=== PATIENT | male | born 1940 | race Caucasian/White ===

== ENCOUNTER 2022-06-12 10:31 | Emergency (ER) | payer OTHER ==
[2022-06-12 10:39] VITALS: RESP 18; BMI 33.0
[2022-06-12] MEDS ORDERED: LIDOCAINE 5% TOPICAL PATCH TP ONE (11:23)
[2022-06-12] MEDS ORDERED: LIDOCAINE 5% TOPICAL PATCH ONE (11:32)
[2022-06-12] MEDS ORDERED: METHOCARBAMOL 500 MG TABLET PO ONE (13:01)
[2022-06-12] MEDS ORDERED: CYCLOBENZAPRINE HCL 5 MG TABLET PO SCH (13:30)
[2022-06-12] MEDS ORDERED: CYCLOBENZAPRINE HCL 5 MG TABLET ONE (14:00)
[2022-06-12 14:56] VITALS: BP 141/63; PULSE 76; TEMP 98.2
[2022-06-12] MEDS ORDERED: oxyCODONE HCL 5 MG TABLET PO ONE (15:58)
[2022-06-12] MEDS ORDERED: oxyCODONE HCL 5 MG TABLET ONE (15:59)
[2022-06-12 16:19] LABS: BASO % 0.5 % (0-2.0); HEMATOCRIT 34.9 % (35.4-49); HEMOGLOBIN 11.6 GM/dL (11.7-16.9); LYMPH % 11.7 % (8-40); MCH 32.5 pg (25.7-33.7); MCHC 33.1 g/dl (32.0-35.9); MEAN PLT VOLUME 7.7 fl (7.5-11.1); MONO % 9.4 % (3.8-10.2); NEUT % 77.4 % (42.8-82.8); PLATELET COUNT 222 10^3/uL (134-434); RBC 3.56 M/mm3 (4.00-5.60); RDW 13.6 % (11.9-15.9); WHITE BLOOD COUNT 8.4 K/mm3 (4.0-10.0)
[2022-06-12 16:37] LABS: ALBUMIN 3.4 g/dl (3.4-5.0); BLOOD UREA NITROGEN 20.4 mg/dL (7-18); CALCIUM 9.3 mg/dL (8.5-10.1)
[2022-06-12 16:42] LABS: BILIRUBIN,TOTAL 0.7 mg/dL (0.2-1); TOT PROT 6.9 g/dl (6.4-8.2)
[2022-06-12] MEDS ORDERED: LIDOCAINE PATCH REMOVAL MC ONE (22:00)
== END 2022-06-12 17:40 | disposition home or self-care (01) ==
LOC: JER 10:31
DX: S32.018A Other fracture of first lumbar vertebra, initial encounter for closed fracture (principal); W01.0XXA Fall on same level from slipping, tripping and stumbling without subsequent striking against object, initial encounter
CPT/HCPCS: 0241U-QW; 36415; 72131-TC; 80053; 85025; 99284-25